=== PATIENT | male | born 1955 | race Caucasian/White ===

== ENCOUNTER 2020-07-24 08:50 | Emergency (ER) | payer MEDICAID ==
[~2020-07-24] VITALS: Ht 188 cm; Wt 90.2 kg
[2020-07-24] MEDS ORDERED: ALBUTEROL (09:01)
[2020-07-24] MEDS ORDERED: LEVO75TA7 PO (09:01)
[2020-07-24] MEDS ORDERED: FLUTICASONE (09:01)
[2020-07-24 09:26] LABS: BASOPHILS % 0.8 % (0.0-2.0); EOSINOPHILS % 5.3 % (0.0-5.0); HEMOGLOBIN. 14.3 g/dL (14.0-18.0); LYMPHOCYTES % 19.4 % (20.0-50.0); MEAN CORPUSCULAR HEMOGLOBIN 32.3 pg (28.0-32.0); MEAN CORPUSCULAR VOLUME 90.4 fL (80.0-94.0); MEAN PLATELET VOLUME 6.7 fl (7.4-10.4); MONOCYTES % 13.4 % (2.0-8.0); NEUTROPHILS % 61.1 % (40.0-76.0); PLATELET 284 x1000/uL (130-400); RED BLOOD CELL COUNT 4.42 mill/uL (4.7-6.1); RED CELL DISTRIBUTION WIDTH 13.3 % (11.6-14.6)
[2020-07-24 09:33] LABS: CHLORIDE 103 mEq/L (98-107)
[2020-07-24 09:37] LABS: ETHANOL BLOOD < 10 mg/dL
[2020-07-24 10:22] LABS: CLARITY URINE CLEAR (CLEAR); COLOR URINE YELLOW (YELLOW); KETONES URINE NEGATIVE (NEGATIVE); LEUKOCYTE ESTERASE URINE NEGATIVE (NEGATIVE); NITRITE URINE NEGATIVE (NEGATIVE); OCCULT BLOOD URINE NEGATIVE (NEGATIVE); PH URINE 7.5 (4.5-8.0); PROTEIN URINE NEGATIVE (NEGATIVE); SPECIFIC GRAVITY URINE 1.011 (1.005-1.030); UROBILINOGEN URINE 0.2 E.U./dL (0.2-1.0)
[2020-07-24 10:40] LABS: *AMPHETAMINES SCREEN URINE NEGATIVE (NEGATIVE); *BARBITURATES SCREEN URINE NEGATIVE (NEGATIVE); *BENZODIAZEPINES SCREEN URINE NEGATIVE (NEGATIVE); METHADONE URINE SCREEN NEGATIVE (NEGATIVE); OPIATES URINE SCREEN NEGATIVE (NEGATIVE)
[2020-07-24 10:41] LABS: *COCAINE SCREEN URINE NEGATIVE (NEGATIVE); CANNABINOID URINE SCREEN NEGATIVE (NEGATIVE); PHENCYCLIDINE URINE SCREEN NEGATIVE (NEGATIVE)
[2020-07-24] MEDS ORDERED: IOHEXOL-350 100 ML BOTTLE ONE (11:44)
[2020-07-24 12:50] VITALS: BP 157/76
== END 2020-07-24 12:57 | disposition left against medical advice (07) ==
LOC: U 08:50 → EDBEDREQTM 11:22 → EDBEDREQ 12:30 → EDBEDREQTM 12:30 → CANBEDREQ 12:52 → U 12:57
DX: R41.82 Altered mental status, unspecified (principal); F17.200 Nicotine dependence, unspecified, uncomplicated; I49.9 Cardiac arrhythmia, unspecified; Z85.118 Personal history of other malignant neoplasm of bronchus and lung; Z86.39 Personal history of other endocrine, nutritional and metabolic disease
CPT/HCPCS: 36415; 70450; 70496; 80053; 80305; 80320; 81003; 82962; 85025; 93005; 99285; Q9967; G0480

== ENCOUNTER 2021-01-08 17:29 | Inpatient (IN) | payer MEDICAID ==
[~2021-01-08] VITALS: Ht 188 cm; Wt 93.0 kg
[~2021-01-08 17:29] MED LIST: ALBUTEROL; FLUTICASONE; LEVO75TA7 PO
[2021-01-08 19:15] LABS: HEMATOCRIT. 39.4 % (42.0-52.0); HEMOGLOBIN. 13.5 g/dL (14.0-18.0); MEAN CORPUSCULAR HEMOGLOBIN 31.6 pg (28.0-32.0); MEAN PLATELET VOLUME 7.3 fl (7.4-10.4); PLATELET 332 x1000/uL (130-400); RED BLOOD CELL COUNT 4.28 mill/uL (4.7-6.1); RED CELL DISTRIBUTION WIDTH 13.2 % (11.6-14.6)
[2021-01-08 19:22] LABS: CHLORIDE 98 mEq/L (98-107)
[2021-01-08 19:31] LABS: CREATINE KINASE 71 IU/L (39-308)
[2021-01-08] MEDS: LACTATED RINGERS 1,000 ML IV SCH ×2 (19:48→23:38)
[2021-01-08 19:56] LABS: PLATELET ESTIMATE NORMAL
[2021-01-08 21:13] LABS: CLARITY URINE CLEAR (CLEAR); COLOR URINE DARK YELLOW (YELLOW); KETONES URINE NEGATIVE (NEGATIVE); LEUKOCYTE ESTERASE URINE NEGATIVE (NEGATIVE); NITRITE URINE NEGATIVE (NEGATIVE); OCCULT BLOOD URINE NEGATIVE (NEGATIVE); PROTEIN URINE NEGATIVE (NEGATIVE); SPECIFIC GRAVITY URINE 1.011 (1.005-1.030)
[2021-01-08] MEDS ORDERED: LACTATED RINGERS 1,000 ML IV SCH (23:30)
[2021-01-08] MEDS ORDERED: ONDANSETRON HCL 4MG/2ML INJ IV ONE (23:30)
[2021-01-09] MEDS: LACTATED RINGERS 1,000 ML IV SCH ×2 (04:25→06:40)
[2021-01-09] MEDS ORDERED: ONDANSETRON HCL 4MG/2ML INJ IV PRN (08:15)
[2021-01-09] MEDS ORDERED: SODIUM CHLORIDE 0.9% 1,000 ML IV ONE (08:15)
[2021-01-09 09:00] VITALS: BP 146/66
[2021-01-09] MEDS ORDERED: PIPERACILLIN/TAZ 3.375G PREMIX 50 ML IV SCH ×2 (09:00→14:00)
[2021-01-09] MEDS ORDERED: NAPR-677 MT (10:31)
[2021-01-09] MEDS ORDERED: ASPI-1497 PO (10:32)
[2021-01-09] MEDS ORDERED: CYAN250010 MT (10:34)
[2021-01-09 12:00] VITALS: BP 158/68
[2021-01-09] MEDS ORDERED: PIPERACILLIN/TAZOBACTAM 3.375GM/50ML PREMIX IV SCH (12:00)
[2021-01-09 13:20] LABS: CHLORIDE 103 mEq/L (98-107); HEMOGLOBIN. 12.9 g/dL (14.0-18.0); MEAN CORPUSCULAR HEMOGLOBIN 31.3 pg (28.0-32.0); MEAN CORPUSCULAR VOLUME 92.3 fL (80.0-94.0); MEAN PLATELET VOLUME 7.8 fl (7.4-10.4); PLATELET 314 x1000/uL (130-400); RED BLOOD CELL COUNT 4.12 mill/uL (4.7-6.1); RED CELL DISTRIBUTION WIDTH 13.1 % (11.6-14.6)
[2021-01-09 14:18] LABS: PLATELET ESTIMATE NORMAL
[2021-01-09] MEDS ORDERED: DOCUSATE SODIUM SUGAR FREE 100MG/10ML UDC NG SCH (15:30)
[2021-01-09] MEDS: PIPERACILLIN/TAZOBACTAM 3.375G in DEXT 5% WATER 50ML IV SCH ×2 (15:44→21:53)
[2021-01-09 16:00] VITALS: BP 142/60
[2021-01-09] MEDS ORDERED: DOCUSATE SODIUM 100MG CAPSULE PO PRN (18:00)
[2021-01-09 20:00] VITALS: BP 130/69
[2021-01-10] VITALS (7 sets, daily range): BP systolic 124–148; BP diastolic 56–100
[2021-01-10] MEDS: PIPERACILLIN/TAZOBACTAM 3.375G in DEXT 5% WATER 50ML IV SCH ×2 (06:13→13:26)
[2021-01-10] MEDS: OMEPRAZOLE 20MG CAPSULE EXTENDED RELEASE PO SCH (17:33)
[2021-01-11 03:40] VITALS: BP 128/70
[2021-01-11 06:16] LABS: CHLORIDE 105 mEq/L (98-107)
[2021-01-11] MEDS: OMEPRAZOLE 20MG CAPSULE EXTENDED RELEASE PO SCH (06:36)
[2021-01-11 06:42] LABS: HEPATITIS B SURFACE ANTIGEN NEGATIVE
[2021-01-11 08:00] VITALS: BP 137/70
[2021-01-11 12:00] VITALS: BP 121/73
[2021-01-11] MEDS ORDERED: LORAZEPAM 2MG/ML CPJ IV NR (14:00)
[2021-01-11 16:00] VITALS: BP 144/125
[2021-01-11 20:00] VITALS: BP 135/69
[2021-01-11 20:14] LABS: BASOPHILS % 1.2 % (0.0-2.0); EOSINOPHILS % 13.3 % (0.0-5.0); HEMATOCRIT. 38.4 % (42.0-52.0); HEMOGLOBIN. 13.1 g/dL (14.0-18.0); LYMPHOCYTES % 32.1 % (20.0-50.0); MEAN CORPUSCULAR HEMOGLOBIN 31.2 pg (28.0-32.0); MEAN CORPUSCULAR VOLUME 91.3 fL (80.0-94.0); MONOCYTES % 12.3 % (2.0-8.0); NEUTROPHILS % 41.1 % (40.0-76.0); PLATELET 425 x1000/uL (130-400); RED CELL DISTRIBUTION WIDTH 12.8 % (11.6-14.6)
[2021-01-11 20:31] LABS: CHLORIDE 101 mEq/L (98-107)
[2021-01-11 23:38] VITALS: BP 130/65
[2021-01-12 03:46] VITALS: BP 129/62
[2021-01-12] MEDS: OMEPRAZOLE 20MG CAPSULE EXTENDED RELEASE PO SCH (06:40)
[2021-01-12 08:00] VITALS: BP 122/68
[2021-01-12 08:18] LABS: BASOPHILS % 1.4 % (0.0-2.0); EOSINOPHILS % 13.5 % (0.0-5.0); HEMOGLOBIN. 13.2 g/dL (14.0-18.0); LYMPHOCYTES % 22.4 % (20.0-50.0); MEAN CORPUSCULAR HEMOGLOBIN 31.5 pg (28.0-32.0); MEAN CORPUSCULAR VOLUME 92.8 fL (80.0-94.0); MEAN PLATELET VOLUME 7.7 fl (7.4-10.4); MONOCYTES % 13.3 % (2.0-8.0); NEUTROPHILS % 49.4 % (40.0-76.0); PLATELET 412 x1000/uL (130-400); RED CELL DISTRIBUTION WIDTH 12.9 % (11.6-14.6)
[2021-01-12 08:20] LABS: CHLORIDE 101 mEq/L (98-107)
[2021-01-12 11:37] VITALS: BP 122/68
== END 2021-01-12 12:50 | disposition home or self-care (01) | DRG 861 ==
LOC: ER 17:29 → 7WST 01-09 02:48 → ENRESERV 01-09 07:31 → EDBEDREQ 01-09 08:39 → 6WST 01-09 18:14
PROVIDERS: ADMIT Internal Medicine; ATTEND Family Medicine Adult Medicine
DX: R53.1 Weakness (principal); K56.7 Ileus, unspecified; C79.31 Secondary malignant neoplasm of brain; B19.20 Unspecified viral hepatitis C without hepatic coma; E03.9 Hypothyroidism, unspecified; F17.200 Nicotine dependence, unspecified, uncomplicated; I10 Essential (primary) hypertension; F10.10 Alcohol abuse, uncomplicated; F40.240 Claustrophobia; K21.9 Gastro-esophageal reflux disease without esophagitis; K83.8 Other specified diseases of biliary tract; R26.81 Unsteadiness on feet; Z20.822 Contact with and (suspected) exposure to COVID-19; Z53.20 Procedure and treatment not carried out because of patient's decision for unspecified reasons; Z85.118 Personal history of other malignant neoplasm of bronchus and lung; Z79.82 Long term (current) use of aspirin; Z79.899 Other long term (current) drug therapy
CPT/HCPCS: 36415; 70551; 71045; 74176; 74181; 76700; 80048; 80053; 80076; 81003; 82140; 82248; 82550; 83880; 84145; 84484; 85025; 86705; 86709; 86803; 87340; 87804; 93005; 97162; 99285; J2060; J2405; J2543; J7060; U0003; U0005